=== PATIENT | female | born 1995 | race African-American/Black ===

== ENCOUNTER 2023-03-27 12:35 | Emergency (ER) | payer MEDICAID ==
[~2023-03-27] VITALS: Ht 165.1 cm; Wt 103.4 kg
[2023-03-27 13:50] LABS: COLOR,URINE YELLOW (YELLOW); KETONES,URINE NEGATIVE (NEGATIVE); LEUKOCYTE ESTERASE ,URINE NEGATIVE (NEGATIVE); NITRITE,URINE NEGATIVE (NEGATIVE); PROTEIN,URINE DIPSTICK TRACE (NEGATIVE)
[2023-03-27 13:51] LABS: CLARITY,URINE SL CLOUDY (CLEAR); URINE UROBILINOGEN 0.2 mg/dL (0.2 - 1)
[2023-03-27 13:53] LABS: BACTERIA,URINE MODERATE /HPF; EPITHELIAL CELLS,URINE MODERATE /LPF; RBC,URINE 0-5 /HPF (0-5)
[2023-03-27 13:54] LABS: MUCUS,URINE FEW (RARE)
[2023-03-27] MEDS ORDERED: CEPHALEXIN500 MG PO (15:47)
== END 2023-03-27 16:00 | disposition home or self-care (01) ==
LOC: ER 13:01
DX: R30.0 Dysuria (principal); N39.0 Urinary tract infection, site not specified; R51.9 Headache, unspecified
CPT/HCPCS: 81001; 81025; 99282

== ENCOUNTER 2024-01-30 19:26 | Emergency (ER) | payer SELFPAY ==
[~2024-01-30] VITALS: Ht 165.1 cm; Wt 109.3 kg
[~2024-01-30 19:26] MED LIST: CEPHALEXIN500 MG PO
[2024-01-30] MEDS ORDERED: PYRIDIUM100 MG PO (20:05)
[2024-01-30] MEDS ORDERED: MACROBID 100 M100 MG PO (20:05)
[2024-01-30 20:35] VITALS: BP 124/76; PULSE 71; RESP 18; TEMP 98.3; O2SAT 98
== END 2024-01-30 20:35 | disposition home or self-care (01) ==
LOC: FSED 19:32
DX: R30.0 Dysuria (principal); N39.0 Urinary tract infection, site not specified
CPT/HCPCS: 81003; 81025; 99282

== ENCOUNTER 2025-07-03 16:46 | Emergency (ER) | payer SELFPAY ==
[~2025-07-03] VITALS: Ht 165.1 cm; Wt 98.7 kg
[~2025-07-03 16:46] MED LIST changes: +MACROBID 100 M100 MG PO; +PYRIDIUM100 MG PO
[2025-07-03] MEDS ORDERED: BACTRIM DS TAB1 EACH PO (17:48)
[2025-07-03 18:03] VITALS: PULSE 73; RESP 16; TEMP 98.3; O2SAT 100
== END 2025-07-03 18:03 | disposition home or self-care (01) ==
LOC: FSED 17:08
DX: R39.15 Urgency of urination (principal); N39.0 Urinary tract infection, site not specified; R10.30 Lower abdominal pain, unspecified; M54.50 Low back pain, unspecified; E28.2 Polycystic ovarian syndrome
CPT/HCPCS: 81003; 87086; 99283